=== PATIENT | female | born 1970 | race Caucasian/White ===

== ENCOUNTER 2019-04-11 06:25 | Inpatient (IN) | payer OTHER | END 2019-04-11 07:40 | disposition home or self-care (01) | LOC: JSAMEDAYSX 06:25 ==

== ENCOUNTER 2019-06-22 11:38 | Emergency (ER) | payer OTHER ==
[2019-06-22 12:10] VITALS: BP 133/74; PULSE 76; TEMP 97.5; BMI 29.2
[2019-06-22 12:51] LABS: BASO % 0.6 % (0-2.0); HEMOGLOBIN 13.2 GM/dL (10.7-15.3); MCH 29.4 pg (25.7-33.7); MEAN CELL VOLUME 89.1 fl (80-96); MEAN PLT VOLUME 8.6 fl (7.5-11.1); MONO % 6.5 % (3.8-10.2); NEUT % 52.9 % (42.8-82.8); PLATELET COUNT 226 K/MM3 (134-434); RBC 4.49 M/mm3 (3.60-5.2); RDW 14.8 % (11.6-15.6); WHITE BLOOD COUNT 7.5 K/mm3 (4.0-10.0)
--- NOTE | 2019-06-22 13:02 | PDOC ---
History of Present Illness - General Chief Complaint: Seizure Stated Complaint: Seizure Time Seen by Provider: 06/22/19 12:11 History Source: Patient Exam Limitations: No Limitations Past History - Past Medical History Allergies/Adverse Reactions: Allergies Allergy/AdvReac Type Severity Reaction Status Date / Time tetracycline [Tetracycline] Allergy Verified 05/26/16 20:45 Home Medications: Ambulatory Orders NK [No Known Home Medication] 06/22/19 Anemia: No Asthma: Yes (SEASONAL POLLEN ALLERGY) Cancer: No Cardiac Disorders: No CVA: No COPD: No CHF: No Dementia: No Diabetes: No GI Disorders: No Disorders: No HTN: No Hypercholesterolemia: No Liver Disease: No Seizures: Yes (LAST SEIZURE MOTHER'S DAY) Thyroid Disease: No - Surgical History Appendectomy: Yes Cholecystectomy: Yes - Suicide/Smoking/Psychosocial Hx Smoking Status: Yes Smoking History: Never smoked Have you smoked in the past 12 months: No Number of Cigarettes Smoked Daily: 10 Information on smoking cessation initiated: No 'Breaking Loose' booklet given: 04/10/19 Hx Alcohol Use: No Drug/Substance Use Hx: No Substance Use Type: None Hx Substance Use Treatment: Yes *Physical Exam - Vital Signs Last Vital Signs Temp Pulse Resp BP Pulse Ox 97.5 F L 76 16 133/74 100 06/22/19 11:40 06/22/19 11:40 06/22/19 11:40 06/22/19 11:40 06/22/19 11:40 - Physical Exam General Appearance: No: Apparent Distress HEENT: positive: Other (no head trauma) Respiratory/Chest: positive: Lungs Clear, Normal Breath Sounds. negative: Respiratory Distress Cardiovascular: positive: Regular Rhythm, Regular Rate, S1, S2. negative: Murmur Gastrointestinal/Abdominal: positive: Normal Bowel Sounds, Soft. 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 negative: Confused, Disoriented ED Treatment Course - LABORATORY CBC & Chemistry Diagram: 06/22/19 12:36 06/22/19 12:36 - ADDITIONAL ORDERS Additional order review: 06/22/19 12:36 RBC 4.49 MCV 89.1 MCHC 33.0 RDW 14.8 MPV 8.6 Neutrophils % 52.9 Lymphocytes % 37.0 Monocytes % 6.5 Eosinophils % 3.0 Basophils % 0.6 Medical Decision Making - Medical Decision Making 49 y/o F hx of asthma, pseudoseizures (uses marijuana), chronic neck/back pain presents with ?seizure episode after getting Lexiscan injection for stress test today. Per note, patient was shaking her head from side to side; no LOC occurred. FS at that time was 93. Patient used to take Keppra for seizures but has been off them for 6 months. States she fired her old PCP and got a new doctor (Dr. Erwin) 2 months ago and he did not place her back on seizure meds. She last saw her neurologist around 5 years ago; she has upcoming appt with new neurologist, Dr. Malone, next week. States only marijuana helps with her seizures. Last seizure before this was on May 16 when she had one as her mother had . Currently feels at baseline and denies any complaints. Denies other drug use. Denies fever, sob, cp, abd pain, vomiting, urinary complaints. S/P pseudoseizure; no trauma occurred Will check electrolytes 06/22/19 12:57 electrolytes normal stable for dc 06/22/19 13:35 *DC/Admit/Observation/Transfer Diagnosis at time of Disposition: Pseudoseizure - Discharge Dispostion Disposition: HOME Condition at time of disposition: Stable Decision to Admit order: No - Referrals Referrals: Rosa Erwin MD [Primary Care Provider] - 2 Days Duane Malone MD [Staff Physician] - 2 Days - Patient Instructions Printed Discharge Instructions: DI for Seizure Disorder -- Adult Additional Instructions: Thank you for choosing [facility]. It was a pleasure taking care of you. Your electrolytes were normal Please follow-up with neurologist and your regular doctor as scheduled Return to the Emergency Department if your symptoms worsen or persist, you have fever, shortness of breath, chest pain, severe abdominal pain, vomiting, repeated seizures or other concerning symptoms. - Post Discharge Activity
[2019-06-22 13:23] LABS: ALBUMIN 3.7 g/dl (3.4-5.0); BILIRUBIN,TOTAL 0.4 mg/dL (0.2-1); BLOOD UREA NITROGEN 18.3 mg/dL (7-18); CALCIUM 9.1 mg/dL (8.5-10.1); CREATININE 0.5 mg/dL (0.55-1.3); POTASSIUM 3.7 mmol/L (3.5-5.1); TOT PROT 7.4 g/dl (6.4-8.2)
== END 2019-06-22 13:46 | disposition home or self-care (01) ==
LOC: JER 11:38
DX: F44.5 Conversion disorder with seizures or convulsions (principal)
CPT/HCPCS: 36415; 80053; 83735; 85025; 99282-25

== ENCOUNTER 2021-01-08 13:53 | Emergency (ER) | payer OTHER ==
[2021-01-08 15:07] VITALS: TEMP 98.8; BMI 30.2
[2021-01-08] MEDS ORDERED: levETIRAcetam 500 MG TABLET (FP) PO ONE ×2 (15:27→15:35)
[2021-01-08 15:46] LABS: BASO % 0.7 % (0-2.0); EOS % 3.6 % (0-4.5); HEMATOCRIT 35.5 % (32.4-45.2); HEMOGLOBIN 11.9 GM/dL (10.7-15.3); LYMPH % 37.4 % (8-40); MCH 29.6 pg (25.7-33.7); MCHC 33.6 g/dl (32.0-36.0); MEAN PLT VOLUME 9.2 fl (7.5-11.1); MONO % 6.1 % (3.8-10.2); NEUT % 52.2 % (42.8-82.8); PLATELET COUNT 199 K/MM3 (134-434); RBC 4.03 M/mm3 (3.60-5.2); RDW 14.7 % (11.6-15.6); WHITE BLOOD COUNT 6.1 K/mm3 (4.0-10.0)
[2021-01-08 16:02] LABS: CALCIUM 9.1 mg/dL (8.5-10.1)
[2021-01-08 16:03] LABS: ALBUMIN 3.7 g/dl (3.4-5.0); BLOOD UREA NITROGEN 14.8 mg/dL (7-18)
[2021-01-08 16:06] LABS: CREATININE 0.6 mg/dL (0.55-1.3)
[2021-01-08 16:07] LABS: BILIRUBIN,TOTAL 0.3 mg/dL (0.2-1)
[2021-01-08 17:12] VITALS: BP 130/101; PULSE 90
[2021-01-08 17:25] LABS: URINE APPEARANCE CLEAR; URINE BILIRUBIN NEGATIVE (NEGATIVE); URINE COLOR YELLOW; URINE GLUCOSE (UA) NEGATIVE (NEGATIVE); URINE KETONE NEGATIVE (NEGATIVE); URINE LEUK ESTERASE NEGATIVE (NEGATIVE); URINE NITRITE NEGATIVE (NEGATIVE); URINE PROTEIN NEGATIVE (NEGATIVE)
== END 2021-01-08 19:12 | disposition home or self-care (01) ==
LOC: JER 13:53
DX: G40.89 Other seizures (principal)
CPT/HCPCS: 36415; 74177-TC; 80053; 80177; 81003; 85025; 87086; 93005; 93010; 99285-25; C9803; Q9967; U0003; U0005

== ENCOUNTER 2021-01-31 16:06 | Emergency (ER) | payer OTHER ==
[2021-01-31 16:29] VITALS: BP 114/67; PULSE 115; TEMP 99; BMI 27.3
[2021-01-31] MEDS ORDERED: levETIRAcetam 500 MG TABLET (FP) PO ONE ×4 (17:26→18:06)
[2021-01-31] MEDS ORDERED: levETIRAcetam 500 MG/5 ML ORAL SOLUTION (UNIT-DOSE CUPS) PO ONE (17:58)
== END 2021-01-31 19:52 | disposition home or self-care (01) ==
LOC: JER 16:06
DX: R56.9 Unspecified convulsions (principal)
CPT/HCPCS: 72070-TC-FY; 72100-TC-FY; 82962; 99284-25

== ENCOUNTER 2021-02-28 17:45 | Emergency (ER) | payer OTHER ==
[2021-02-28 18:48] VITALS: BMI 27.3
[2021-02-28 20:57] VITALS: BP 126/78; PULSE 86; TEMP 97.8
== END 2021-02-28 20:57 | disposition home or self-care (01) ==
LOC: JER 17:45
DX: R56.9 Unspecified convulsions (principal)
CPT/HCPCS: 36415; 80177; 80201; 82962; 99284-25

== ENCOUNTER 2021-12-02 13:53 | Emergency (ER) | payer OTHER ==
[2021-12-02 14:11] VITALS: TEMP 98.2; BMI 21.0
[2021-12-02 14:56] VITALS: BP 92/61; PULSE 83
[2021-12-02 14:59] LABS: BASO % 0.6 % (0-2.0); EOS % 1.8 % (0-4.5); HEMATOCRIT 35.6 % (32.4-45.2); HEMOGLOBIN 11.7 GM/dL (10.7-15.3); LYMPH % 41.1 % (8-40); MCH 28.9 pg (25.7-33.7); MCHC 32.8 g/dl (32.0-36.0); MEAN CELL VOLUME 88.2 fl (80-96); MEAN PLT VOLUME 8.5 fl (7.5-11.1); MONO % 5.5 % (3.8-10.2); PLATELET COUNT 223 10^3/uL (134-434); RBC 4.04 M/mm3 (3.60-5.2); RDW 15.1 % (11.6-15.6)
[2021-12-02 15:21] LABS: CALCIUM 9.2 mg/dL (8.5-10.1)
[2021-12-02 15:22] LABS: ALBUMIN 3.7 g/dl (3.4-5.0); BLOOD UREA NITROGEN 9.8 mg/dL (7-18)
[2021-12-02 15:25] LABS: CREATININE 0.6 mg/dL (0.55-1.3)
[2021-12-02 15:26] LABS: TOT PROT 6.9 g/dl (6.4-8.2)
[2021-12-02 15:27] LABS: BILIRUBIN,TOTAL 0.4 mg/dL (0.2-1)
[2021-12-02] MEDS ORDERED: levETIRAcetam 500 MG/5 ML INJECTION VIAL IVPB ONE ×2 (15:38→15:49)
[2021-12-02 16:12] LABS: PH,URINE 8.5 (5.0-8.0); URINE APPEARANCE CLEAR; URINE BILIRUBIN NEGATIVE (NEGATIVE); URINE COLOR YELLOW; URINE GLUCOSE (UA) NEGATIVE (NEGATIVE); URINE KETONE NEGATIVE (NEGATIVE); URINE LEUK ESTERASE NEGATIVE (NEGATIVE); URINE NITRITE NEGATIVE (NEGATIVE); URINE PROTEIN NEGATIVE (NEGATIVE); URINE UROBILINOGEN 0.2 mg/dL (0.2-1.0)
== END 2021-12-02 17:35 | disposition home or self-care (01) ==
LOC: JER 13:53
PROC: 3E033GC Introduction of Other Therapeutic Substance into Peripheral Vein, Percutaneous Approach (ICD-10-PCS; principal; 2021-12-02)
DX: G40.89 Other seizures (principal)
CPT/HCPCS: 36415; 70450-TC; 80053; 80177; 81003; 82962; 85025; 87086; 93005; 93010; 96374; 99285-25

== ENCOUNTER 2021-12-19 12:35 | Emergency (ER) | payer OTHER ==
[2021-12-19] MEDS ORDERED: levETIRAcetam 500 MG/5 ML INJECTION VIAL IVPB ONE ×2 (13:31→13:54)
[2021-12-19 13:37] VITALS: BMI 19.2
[2021-12-19] MEDS ORDERED: ACETAMINOPHEN 325 MG TABLET (FP) PO ONE (13:37)
[2021-12-19] MEDS ORDERED: ACETAMINOPHEN 325 MG TABLET (FP) ONE (13:54)
[2021-12-19 14:26] LABS: BASO % 0.9 % (0-2.0); EOS % 1.1 % (0-4.5); HEMATOCRIT 34.5 % (32.4-45.2); HEMOGLOBIN 11.7 GM/dL (10.7-15.3); LYMPH % 26.2 % (8-40); MCH 29.8 pg (25.7-33.7); MCHC 33.9 g/dl (32.0-36.0); MEAN CELL VOLUME 88.1 fl (80-96); MEAN PLT VOLUME 8.2 fl (7.5-11.1); MONO % 5.2 % (3.8-10.2); NEUT % 66.6 % (42.8-82.8); PLATELET COUNT 214 10^3/uL (134-434); RBC 3.92 M/mm3 (3.60-5.2)
[2021-12-19 14:38] LABS: ALBUMIN 3.6 g/dl (3.4-5.0); CALCIUM 8.7 mg/dL (8.5-10.1)
[2021-12-19 14:39] LABS: BLOOD UREA NITROGEN 19.1 mg/dL (7-18)
[2021-12-19 14:42] LABS: CREATININE 0.6 mg/dL (0.55-1.3)
[2021-12-19 14:43] LABS: BILIRUBIN,TOTAL 0.2 mg/dL (0.2-1); TOT PROT 6.5 g/dl (6.4-8.2)
[2021-12-19 16:25] LABS: URINE APPEARANCE CLOUDY; URINE BILIRUBIN NEGATIVE (NEGATIVE); URINE COLOR YELLOW; URINE GLUCOSE (UA) NEGATIVE (NEGATIVE); URINE KETONE TRACE (NEGATIVE); URINE LEUK ESTERASE NEGATIVE (NEGATIVE); URINE NITRITE NEGATIVE (NEGATIVE); URINE PROTEIN NEGATIVE (NEGATIVE)
[2021-12-19 18:02] VITALS: BP 120/74; PULSE 83; TEMP 97.9
== END 2021-12-19 18:03 | disposition home or self-care (01) ==
LOC: JER 12:35
PROC: 3E033GC Introduction of Other Therapeutic Substance into Peripheral Vein, Percutaneous Approach (ICD-10-PCS; principal; 2021-12-19)
DX: G40.89 Other seizures (principal)
CPT/HCPCS: 36415; 71045-TC-FY; 80053; 80177; 80201; 81003; 82962; 85025; 87086; 93005; 93010; 99285-25

== ENCOUNTER 2022-04-01 14:35 | Emergency (ER) | payer OTHER ==
[2022-04-01 15:09] VITALS: BMI 22.8
[2022-04-01] MEDS ORDERED: ACETAMINOPHEN 1000 MG/100 ML BAG IVPB ONE (15:10)
[2022-04-01] MEDS ORDERED: SODIUM CHLORIDE 0.9% 500 ML INFUS.BAG IV ONE (15:10)
[2022-04-01] MEDS ORDERED: levETIRAcetam 500 MG/5 ML INJECTION VIAL IVPB ONE ×2 (15:11→15:55)
[2022-04-01 16:27] LABS: PH,URINE 5.5 (5.0-8.0); URINE APPEARANCE CLEAR; URINE BILIRUBIN NEGATIVE (NEGATIVE); URINE COLOR YELLOW; URINE GLUCOSE (UA) NEGATIVE (NEGATIVE); URINE KETONE NEGATIVE (NEGATIVE); URINE LEUK ESTERASE NEGATIVE (NEGATIVE); URINE NITRITE NEGATIVE (NEGATIVE); URINE PROTEIN NEGATIVE (NEGATIVE); URINE UROBILINOGEN 0.2 mg/dL (0.2-1.0)
[2022-04-01 16:27] LABS: BASO % 1.2 % (0-2.0); EOS % 2.9 % (0-4.5); HEMATOCRIT 33.9 % (32.4-45.2); HEMOGLOBIN 11.4 GM/dL (10.7-15.3); LYMPH % 37.8 % (8-40); MCH 29.4 pg (25.7-33.7); MCHC 33.7 g/dl (32.0-36.0); MEAN CELL VOLUME 87.1 fl (80-96); MEAN PLT VOLUME 8.5 fl (7.5-11.1); MONO % 5.6 % (3.8-10.2); NEUT % 52.5 % (42.8-82.8); PLATELET COUNT 217 10^3/uL (134-434); RDW 15.2 % (11.6-15.6); WHITE BLOOD COUNT 6.4 K/mm3 (4.0-10.0)
[2022-04-01 16:38] LABS: CALCIUM 8.6 mg/dL (8.5-10.1)
[2022-04-01 16:39] LABS: ALBUMIN 3.2 g/dl (3.4-5.0); BLOOD UREA NITROGEN 15.8 mg/dL (7-18)
[2022-04-01 16:42] LABS: CREATININE 0.5 mg/dL (0.55-1.3)
[2022-04-01 16:43] LABS: TOT PROT 6.4 g/dl (6.4-8.2)
[2022-04-01 16:44] LABS: BILIRUBIN,TOTAL 0.2 mg/dL (0.2-1)
[2022-04-01 17:05] VITALS: BP 105/70; PULSE 72; TEMP 97.5
== END 2022-04-01 17:25 | disposition home or self-care (01) ==
LOC: JER 14:35
PROC: 3E0333Z Introduction of Anti-inflammatory into Peripheral Vein, Percutaneous Approach (ICD-10-PCS; principal; 2022-04-01)
PROC: 3E033GC Introduction of Other Therapeutic Substance into Peripheral Vein, Percutaneous Approach (ICD-10-PCS; 2022-04-01)
DX: G40.89 Other seizures (principal)
CPT/HCPCS: 36415; 70450-TC; 80053; 81003; 82962; 84703; 85025; 87086; 93005; 93010; 99285-25

== ENCOUNTER 2022-06-04 14:53 | Emergency (ER) | payer OTHER ==
[2022-06-04 15:03] VITALS: BP 127/83; PULSE 90; RESP 20; TEMP 98.3; BMI 24.4
[2022-06-04] MEDS ORDERED: ACETAMINOPHEN 500 MG TABLET (FP) PO ONE (16:26)
[2022-06-04] MEDS ORDERED: ACETAMINOPHEN 500 MG TABLET (FP) ONE (16:42)
== END 2022-06-04 18:36 | disposition home or self-care (01) ==
LOC: JER 14:53 → JERFT 14:53
DX: S09.93XA Unspecified injury of face, initial encounter (principal); S06.0X0A Concussion without loss of consciousness, initial encounter; W19.XXXA Unspecified fall, initial encounter; Y92.9 Unspecified place or not applicable
CPT/HCPCS: 70450-TC; 70486-TC; 99284-25